=== PATIENT | female | born 1950 | race Caucasian/White ===

== ENCOUNTER 2017-03-31 11:29 | Observation (INO) | payer OTHER, MEDICARE ==
[~2017-03-31] VITALS: Ht 165.1 cm; Wt 83.6 kg
[~2017-03-31 11:29] MED LIST: LANTUS2P SQ; LISI-519 PO; LOVA20TA PO; METF-382 PO; MIRA33504 PO; RANI300C PO; SENN8.6T5 PO
[2017-03-31 11:31] VITALS: BP 123/59; PULSE 83; RESP 18; TEMP 97.6; O2SAT 98
[2017-03-31 12:14] LABS: AUTOMATED NEUTROPHIL # 8.4 TH/MM3 (1.8-7.7); BASOPHIL # 0.1 TH/MM3 (0-0.2); BASOPHIL % 0.5 % (0.0-2.0); EOSINOPHIL % 0.4 % (0.0-4.0); HEMATOCRIT 41.8 % (35.0-46.0); HEMOGLOBIN 14.1 GM/DL (11.6-15.3); LYMPHOCYTE # 2.1 TH/MM3 (1.0-4.8); MEAN CELL VOLUME 92.9 FL (80.0-100.0); MEAN CORPUSCULAR HEMOGLOBIN 31.4 PG (27.0-34.0); MEAN CORPUSCULAR HGB CONC 33.8 % (32.0-36.0); MEAN PLATELET VOLUME 7.5 FL (7.0-11.0); MONO % 3.8 % (0.0-8.0); MONOCYTE # 0.4 TH/MM3 (0-0.9); NEUT % 76.3 % (16.0-70.0); PLATELET COUNT 338 TH/MM3 (150-450); RED CELL DISTRIBUTION WIDTH 12.7 % (11.6-17.2)
[2017-03-31 12:31] LABS: PROTHROMBIN TIME - PATIENT 10.5 SEC (9.8-11.6)
[2017-03-31 12:32] LABS: ALBUMIN 4.2 GM/DL (3.4-5.0); ALT (GPT) 28 U/L (10-53); AST (GOT) 16 U/L (15-37); BICARBONATE 26.9 MEQ/L (21.0-32.0); BLOOD UREA NITROGEN 15 MG/DL (7-18); CALCIUM 9.2 MG/DL (8.5-10.1); CHLORIDE 102 MEQ/L (98-107); CREATININE 0.92 MG/DL (0.50-1.00); GLOMERULAR FILTRATION RATE 61 ML/MIN (>89); GLUCOSE,RANDOM 224 MG/DL (74-106); MAGNESIUM 1.4 MG/DL (1.5-2.5); SODIUM (NA) 139 MEQ/L (136-145)
[2017-03-31 12:36] LABS: ALKALINE PHOSPHATASE 77 U/L (45-117); TOTAL BILIRUBIN ADULT 0.3 MG/DL (0.2-1.0); TOTAL PROTEIN 7.8 GM/DL (6.4-8.2); TROPONIN I LESS THAN 0.02 NG/ML (0.02-0.05)
[2017-03-31] MEDS ORDERED: SODIUM CHLOR 0.9% 1000 ML INJ 1,000 ML IV ONE (13:00)
--- NOTE | 2017-03-31 13:15 | RADRPT ---
EXAM DATE/TIME: 03/31/2017 13:06 [facility] COMPARISON: CHEST SINGLE AP, February 16, 2016, 11:03. INDICATIONS : Syncope MEDICAL HISTORY : syncopal episodes, hx of ovarian cancer SURGICAL HISTORY : port for chemotherapy ENCOUNTER: Initial ACUITY: 1 month PAIN SCORE: 0/10 LOCATION: Bilateral chest FINDINGS: A single view of the chest demonstrates the lungs to be symmetrically aerated without evidence of mas s, infiltrate or effusion. The cardiomediastinal contours are unremarkable. Osseous structures are intact. The implantable port catheter remains in place. CONCLUSION: No acute disease. Doc Beltran MD on March 31, 2017 at 13:13 Board Certified Radiologist. This report was verified electronically.
--- NOTE | 2017-03-31 13:23 | RADRPT ---
EXAM DATE/TIME: 03/31/2017 13:16 [facility] COMPARISON: No previous studies available for comparison. INDICATIONS : Syncope RADIATION DOSE: 37.75 CTDIvol (mGy) MEDICAL HISTORY : Cardiovascular disease. Hypertension. Ovarian cancer SURGICAL HISTORY : Hysterectomy. ENCOUNTER: Initial ACUITY: 1 day PAIN SCALE: 0/10 LOCATION: cranial TECHNIQUE: Multiple contiguous axial images were obtained of the head. Using automated exposure control and adj ustment of the mA and/or kV according to patient size, radiation dose was kept as low as reasonably a chievable to obtain optimal diagnostic quality images. DICOM format image data is available electro nically for review and comparison. FINDINGS: CEREBRUM: The ventricles are normal for age. No evidence of midline shift, mass lesion, hemorrhage or acute in farction. No extra-axial fluid collections are seen. POSTERIOR FOSSA: The cerebellum and brainstem are intact. The 4th ventricle is midline. The cerebellopontine angle i s unremarkable. EXTRACRANIAL: The visualized portion of the orbits is intact. SKULL: The calvaria is intact. No evidence of skull fracture. CONCLUSION: Normal examination. Yoel Novoa MD on March 31, 2017 at 13:19 Board Certified Radiologist. This report was verified electronically.
--- NOTE | 2017-03-31 13:25 | PD ---
HPI Chief Complaint: Syncope/Near-Syncope Time Seen by Provider: 12:22 Travel History International Travel<30 days: No Contact w/Intl Traveler<30days: No Traveled to known affect area: No History of Present Illness HPI 67-year-old female that presents to the ED for evaluation of syncopal episode at work. Per family and patient she's never actually been worked up for this before. Per patient she usually takes care of it herself. Per who is present she's been having more frequent episodes of this since 2016. Per patient and family member in 2016 she had a big one and she had some workup but he was all negative. She has not seen anybody for it since. Per patient episodes becoming more frequent. Per patient and family member they thought he was maybe positional syncope but per family member he believes that this is not the case as patient hasn't even when she is sitting or laying. Per patient the episode today started will she was working. Per patient she works as a [employer]. She stated that she was taking care of her second fine today and she started feeling diaphoretic, sweaty, right all over and she sat down and the symptoms improved but she felt like she was about to pass out. She did not actually lost consciousness but she feels that she could still have an episode like this again. She did not felt comfortable driving, had her drive her home and because of her symptoms continued she decided to come here to get evaluated. She denies any history of heart disease. She does have a history of high cholesterol, diabetes and hypertension. No urinary or bowel movement issues. Denies any fevers chills or sweats. Denies any chest pain before or after the episodes. Follows with the residents for care. Patient denies any pain. No other symptoms reported at this time but states feeling that she feels weak. PFSH Past Medical History Asthma: No Blood Disorders: No Anxiety: No Depression: No Heart Rhythm Problems: No Cancer: Yes ( OVARIAN) Cardiovascular Problems: Yes (HTN, hyperlipidemia) High Cholesterol: Yes Chemotherapy: Yes Chest Pain: No Congestive Heart Failure: No COPD: No Diabetes: Yes Endocrine: Yes Genitourinary: No Hiatal Hernia: No Hypertension: Yes Immune Disorder: No Musculoskeletal: No Neurologic: No Psychiatric: No Reproductive: No Respiratory: No Radiation Therapy: No Sleep Apnea: No Thyroid Disease: No Past Surgical History AICD: No Hysterectomy: Yes (TOTAL) Joint Replacement: No Pacemaker: No Thoracic Surgery: Yes (SMALL TUMOR REMOVED FROM L BREAST) Other Surgery: Yes Social History Alcohol Use: No Tobacco Use: No Substance Use: No Allergies-Medications (Allergen,Severity, Reaction): Coded Allergies: vancomycin (Unverified Allergy, Severe, Hives, 03/31/17) Reported Meds & Prescriptions Reported Meds & Active Scripts Active Ranitidine (Ranitidine HCl) 300 Mg Cap 300 Mg PO DAILY Lovastatin 20 Mg Tab 20 Mg PO DAILY Lantus Inj (Insulin Glargine) 100 Unit/Ml Inj 24 Units SQ HS Reported Vitamin D3 (Cholecalciferol) 400 Unit Tab 400 Units PO DAILY One Daily For Women (Multiple Vitamins W/ Minerals) 0.4 Mg-18 Mg Tab 1 Tab PO DAILY Metformin ER (Metformin HCl) 1,000 Mg Neva 1,000 Mg PO BID With evening meal Lisinopril 5 Mg Tab 5 Mg PO DAILY Review of Systems Except as stated in HPI: all other systems reviewed are Neg Physical Exam Narrative GENERAL: SKIN: Warm and dry. HEAD: Atraumatic. Normocephalic. EYES: Pupils equal and round. No scleral icterus. No injection or drainage. ENT: No nasal bleeding or discharge. Mucous membranes pink and moist. Tongue is midline. No uvula deviation. NECK: Trachea midline. No JVD. CARDIOVASCULAR: Regular rate and rhythm. No murmurs, S3, S4. RESPIRATORY: No accessory muscle use. Clear to auscultation. Breath sounds equal bilaterally. GASTROINTESTINAL: Abdomen soft, non-tender, nondistended. Hepatic and splenic margins not palpable. MUSCULOSKELETAL: Extremities without clubbing, cyanosis, or edema. No obvious deformities. Full range of motion of the upper and lower extremities bilaterally. 2+ pulses bilaterally. NEUROLOGICAL: Awake and alert. No obvious cranial nerve deficits. Motor grossly within normal limits. Five out of 5 muscle strength in the arms and legs. Normal speech. PSYCHIATRIC: Appropriate mood and affect; insight and judgment normal. Data Data Last Documented VS Vital Signs Date Time Temp Pulse Resp B/P (MAP) Pulse Ox O2 Delivery O2 Flow Rate FiO2 03/31/17 13:48 77 16 122/66 (84) 98 Room Air 03/31/17 11:31 97.6 Orders Orders Electrocardiogram (03/31/17 11:47) Complete Blood Count With Diff (03/31/17 11:47) Comprehensive Metabolic Panel (03/31/17 11:47) Magnesium (Mg) (03/31/17 11:47) Ckmb (Isoenzyme) Profile (03/31/17 11:47) Troponin I (03/31/17 11:47) Act Partial Throm Time (Ptt) (03/31/17 11:47) Prothrombin Time / Inr (Pt) (03/31/17 11:47) Urinalysis - C+S If Indicated (03/31/17 11:47) Chest, Single Ap (03/31/17 12:37) Ct Brain W/O Iv Contrast(Rout) (03/31/17 12:37) Blood Glucose (03/31/17 12:37) Orthostatic Vital Signs (03/31/17 12:37) Sodium Chlor 0.9% 1000 Ml Inj (Ns 1000 M (03/31/17 13:00) Admit Order (Ed Use Only) (03/31/17 14:04) Labs Laboratory Tests Test 03/31/17 12:04 White Blood Count 11.0 TH/MM3 Red Blood Count 4.50 MIL/MM3 Hemoglobin 14.1 GM/DL Hematocrit 41.8 % Mean Corpuscular Volume 92.9 FL Mean Corpuscular Hemoglobin 31.4 PG Mean Corpuscular Hemoglobin Concent 33.8 % Red Cell Distribution Width 12.7 % Platelet Count 338 TH/MM3 Mean Platelet Volume 7.5 FL Neutrophils (%) (Auto) 76.3 % Lymphocytes (%) (Auto) 19.0 % Monocytes (%) (Auto) 3.8 % Eosinophils (%) (Auto) 0.4 % Basophils (%) (Auto) 0.5 % Neutrophils # (Auto) 8.4 TH/MM3 Lymphocytes # (Auto) 2.1 TH/MM3 Monocytes # (Auto) 0.4 TH/MM3 Eosinophils # (Auto) 0.0 TH/MM3 Basophils # (Auto) 0.1 TH/MM3 CBC Comment DIFF FINAL Differential Comment Prothrombin Time 10.5 SEC Prothromb Time International Ratio 1.0 RATIO Activated Partial Thromboplast Time 20.6 SEC Blood Urea Nitrogen 15 MG/DL Creatinine 0.92 MG/DL Random Glucose 224 MG/DL Total Protein 7.8 GM/DL Albumin 4.2 GM/DL Calcium Level 9.2 MG/DL Magnesium Level 1.4 MG/DL Alkaline Phosphatase 77 U/L Aspartate Amino Transf (AST/SGOT) 16 U/L Alanine Aminotransferase (ALT/SGPT) 28 U/L Total Bilirubin 0.3 MG/DL Sodium Level 139 MEQ/L Potassium Level 4.0 MEQ/L Chloride Level 102 MEQ/L Carbon Dioxide Level 26.9 MEQ/L Anion Gap 10 MEQ/L Estimat Glomerular Filtration Rate 61 ML/MIN Total Creatine Kinase 92 U/L Troponin I LESS THAN 0.02 NG/ML MDM Medical Decision Making Medical Screen Exam Complete: Yes Emergency Medical Condition: Yes Medical Record Reviewed: Yes Interpretation(s) EKG shows sinus rhythm with no sign of acute ischemia or arrhythmia read by me and attending. Troponin and CK-MB negative. CBC & BMP Diagram 03/31/17 12:04 Total Protein 7.8, Albumin 4.2, Calcium Level 9.2, Magnesium Level 1.4 L, Alkaline Phosphatase 77, Aspartate Amino Transf (AST/SGOT) 16, Alanine Aminotransferase (ALT/SGPT) 28, Total Bilirubin 0.3 Differential Diagnosis Syncope versus orthostatic hypotension versus vasovagal syncope versus cancer versus mass versus arrhythmia Narrative Course 67-year-old female that presents to the ED for evaluation of syncope. Patient was properly examined and was found to have signs and symptoms consistent with syncope. Labs and imaging were ordered. Clear to this time with definite concerning for cardiac disease as patient does have significant risk factors for them. Patient is a diabetic and states that her sugars have been in the 200s today. Labs and imaging showed no sign of acute disease. Case discussed with my attending who agrees with admission. Case discussed with residents who agreed with admission. Diagnosis Primary Impression: Syncope Qualified Codes: R55 - Syncope and collapse Admitting Information Admitting Physician Requests: Observation Huber Silveira Mar 31, 2017 13:25
[2017-03-31] MEDS ORDERED: VITD400 PO (13:38)
[2017-03-31] MEDS ORDERED: ONETAB13 PO (13:38)
[2017-03-31 13:47] VITALS: BP_SYST 115; BP_SYST 118; BP_SYST 122; BP_DIAS 59; BP_DIAS 66; BP_DIAS 67; RESP 16
[2017-03-31 13:48] VITALS: BP 122/66; PULSE 77; RESP 16; O2SAT 98
--- NOTE | 2017-03-31 14:39 | HHI.HP ---
[facility] Service Family Medicine Primary Care Physician Unknown Admission Diagnosis acute syncope Diagnoses: International Travel<30 Days: No Contact w/Intl Traveler<30days: No Known Affected Area: No History of Present Illness 67 y/o F, history of DM, GERD, HTN, and HLD , was at work today and started feeling a hot flash and nausea. 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 She ran to the bathroom and nothing happened. She continued to feel hot flashes and perspirations. She layed down on the bathroom floor. She got back up and tried to return to work but realized she was unable to. She didn't feel safe driving home and had her come pick her up. She threw up 1 time while she was waiting for her and threw up her breakfast. She took Zofran but this did not alleviate her nausea. Her brought her here to the hospital because of his concern that this keeps happening so often. This happened for the 1st time years ago and she thought she was over-heated from working in the yard and began before her cancer diagnosis. Since then she will experience this episode about one time per week. She gets hot flashes, blurry vision, N/V, dizziness, weakness, 'out-of-body' experience and presyncope. She has not yet had any syncopal episodes. The episode will last for about 1 hour. She denies any chest pain or shortness of breath during these episodes. Usually she can relax and lay down and recover from the episode but today she couldn't get out of it. Surgery for a large ovarian cancer tumor was in December of 2015. She has continued to inform her Search Director/Onc of these episodes. She has been through 6 chemotherapy treatments and finished in May of 2016. She last saw her Search Director/Onc in 2 or 3 months ago. The lab results were all normal per patient. Review of Systems Constitutional: DENIES: Weight loss, Chills Endocrine: DENIES: Polyuria, Polyphagia Ears, nose, mouth, throat: DENIES: Hearing loss, Vertigo Respiratory: COMPLAINS OF: Cough (recent URI last week), DENIES: Wheezing, Shortness of breath Cardiovascular: COMPLAINS OF: Orthopnea (+ sometimes), DENIES: Claudication Gastrointestinal: DENIES: Constipation, Diarrhea Genitourinary: DENIES: Abnormal vaginal bleeding, Urinary frequency Musculoskeletal: COMPLAINS OF: Stiffness (feet and back from working), DENIES: Joint Swelling Integumentary: DENIES: Rash, Breast masses Neurologic: DENIES: Headache, Seizures Psychiatric: DENIES: Mood changes, Depression Past Family Social History Past Medical History HTN HLD DM Ovarian cancer Past Surgical History GRISELDA-BSO in 2017 L breast tumor removed in Minor foot surgery 1980s Allergies: Coded Allergies: vancomycin (Unverified Allergy, Severe, Hives, 03/31/17) Family History Dad: heart disease, multiple [place]'s with angioplasty Mom: heart disease Brother: CAD, [place] Sister: CAD, [place] Social History works as [employer] (recently started working in 09/30 after chemo), lives at home with (who recently had pneumonia), exposed to Hep C with Non-smoker, Non-drinker, Never done drugs Physical Exam Vital Signs Vital Signs Date Time Temp Pulse Resp B/P (MAP) Pulse Ox O2 Delivery O2 Flow Rate FiO2 03/31/17 13:48 77 16 122/66 (84) 98 Room Air 03/31/17 13:47 77 16 115/59 (77) 81 16 118/67 (84) 87 16 122/66 (84) 03/31/17 11:31 97.6 83 18 123/59 (80) 98 Physical Exam GENERAL: This is a well-nourished, well-developed patient, in no apparent distress. SKIN: No rashes, ecchymoses or lesions. Cool and dry. HEAD: Atraumatic. Normocephalic. No temporal or scalp tenderness. EYES: Pupils equal round and reactive. Extraocular motions intact. No scleral icterus. No injection or drainage. ENT: Nose without bleeding, purulent drainage or septal hematoma. Throat without erythema, tonsillar hypertrophy or exudate. Uvula midline. Airway patent. NECK: Trachea midline. No JVD or lymphadenopathy. Supple, nontender, no meningeal signs. CARDIOVASCULAR: Regular rate and rhythm without murmurs, gallops, or rubs. RESPIRATORY: Clear to auscultation. Breath sounds equal bilaterally. No wheezes , rales, or rhonchi. GASTROINTESTINAL: Abdomen soft, non-tender, nondistended. No hepato-splenomegaly , or palpable masses. No guarding. MUSCULOSKELETAL: Extremities without clubbing, cyanosis, or edema. No joint tenderness, effusion, or edema noted. No calf tenderness. Negative Homans sign bilaterally. NEUROLOGICAL: Awake and alert. Cranial nerves II through XII intact. Motor and sensory grossly within normal limits. Five out of 5 muscle strength in all muscle groups. Normal speech. Laboratory Laboratory Tests Test 03/31/17 12:04 White Blood Count 11.0 Red Blood Count 4.50 Hemoglobin 14.1 Hematocrit 41.8 Mean Corpuscular Volume 92.9 Mean Corpuscular Hemoglobin 31.4 Mean Corpuscular Hemoglobin Concent 33.8 Red Cell Distribution Width 12.7 Platelet Count 338 Mean Platelet Volume 7.5 Neutrophils (%) (Auto) 76.3 Lymphocytes (%) (Auto) 19.0 Monocytes (%) (Auto) 3.8 Eosinophils (%) (Auto) 0.4 Basophils (%) (Auto) 0.5 Neutrophils # (Auto) 8.4 Lymphocytes # (Auto) 2.1 Monocytes # (Auto) 0.4 Eosinophils # (Auto) 0.0 Basophils # (Auto) 0.1 CBC Comment DIFF FINAL Differential Comment Prothrombin Time 10.5 Prothromb Time International Ratio 1.0 Activated Partial Thromboplast Time 20.6 Blood Urea Nitrogen 15 Creatinine 0.92 Random Glucose 224 Total Protein 7.8 Albumin 4.2 Calcium Level 9.2 Magnesium Level 1.4 Alkaline Phosphatase 77 Aspartate Amino Transf (AST/SGOT) 16 Alanine Aminotransferase (ALT/SGPT) 28 Total Bilirubin 0.3 Sodium Level 139 Potassium Level 4.0 Chloride Level 102 Carbon Dioxide Level 26.9 Anion Gap 10 Estimat Glomerular Filtration Rate 61 Total Creatine Kinase 92 Troponin I LESS THAN 0.02 Result Diagram: 03/31/17 1204 03/31/17 1204 Septic Shock Reassessment Septic shock perfusion: reassessment completed Caprini VTE Risk Assessment Caprini VTE Risk Assessment: No/Low Risk (score <= 1) Caprini Risk Assessment Model Point Value = 1 Point Value = 2 Point Value = 3 Point Value = 5 Age 41-60 Minor surgery BMI > 25 kg/m2 Swollen legs Varicose veins or History of unexplained or recurrent spontaneous Oral contraceptives or hormone replacement Sepsis (< 1 month) Serious lung disease, including pneumonia (< 1 month) Abnormal pulmonary function Acute myocardial infarction Congestive heart failure (< 1 month) History of inflammatory bowel disease Medical patient at bed rest Age 61-74 Arthroscopic surgery Major open surgery (> 45 min) Laparoscopic surgery (> 45 min) Malignancy Confined to bed (> 72 hours) Immobilizing plaster cast Central venous access Age >= 75 History of VTE Family history of VTE Factor V Leiden Prothrombin [id number] Lupus anticoagulant Anticardiolipin antibodies Elevated serum homocysteine Heparin-induced thrombocytopenia Other congenital or acquired thrombophilia Stroke (< 1 month) Elective arthroplasty Hip, pelvis, or leg fracture Acute spinal cord injury (< 1 month) Prophylaxis Regimen Total Risk Factor Score Risk Level Prophylaxis Regimen 0-1 Low Early ambulation 2 Moderate Order ONE of the following: *Sequential Compression Device (SCD) *Heparin 5000 units SQ BID 3-4 Higher Order ONE of the following medications: *Heparin 5000 units SQ TID *Enoxaparin/Lovenox 40 mg SQ daily (WT < 150 kg, CrCl > 30 mL/min) *Enoxaparin/Lovenox 30 mg SQ daily (WT < 150 kg, CrCl > 10-29 mL/min) *Enoxaparin/Lovenox 30 mg SQ BID (WT < 150 kg, CrCl > 30 mL/min) AND/OR *Sequential Compression Device (SCD) 5 or more Highest Order ONE of the following medications: *Heparin 5000 units SQ TID (Preferred with Epidurals) *Enoxaparin/Lovenox 40 mg SQ daily (WT < 150 kg, CrCl > 30 mL/min) *Enoxaparin/Lovenox 30 mg SQ daily (WT < 150 kg, CrCl > 10-29 mL/min) *Enoxaparin/Lovenox 30 mg SQ BID (WT < 150 kg, CrCl > 30 mL/min) AND *Sequential Compression Device (SCD) Assessment and Plan Assessment and Plan 67 y/o F, history of DM, GERD, HTN, and HLD , was at work today and started feeling a hot flash and nausea. Problem List: (1) Syncope ICD Codes: R55 - Syncope and collapse Status: Acute Plan: May be due to orthostatic hypotension versus stroke versus cardiac abnormality versus hypoglycemia versus cancer related - Orthostatic blood pressures negative - CT head negative -Follow up carotid ultrasound Follow-up echocardiogram Continuous telemetry Follow-up bedside glucose levels Follow-up CA 125 (2) Hypertension ICD Codes: I10 - Essential (primary) hypertension Status: Chronic Plan: Continue home medication When necessary Vasotec (3) Hyperlipidemia ICD Codes: E78.5 - Hyperlipidemia, unspecified Status: Chronic Plan: Continue lovastatin 20 mg daily Follow-up lipid profile We'll consider increase in statin dosing (4) Diabetes ICD Codes: E11.9 - Type 2 diabetes mellitus without complications Plan: Unknown control per patient Hold home meds Insulin sliding scale (5) Ovarian cancer ICD Codes: C56.9 - Malignant neoplasm of unspecified ovary Status: Resolved Plan: History of ovarian cancer, in remission per patient Last visit with ER MEDICAL TECHNICIAN/onc was 2-3 months ago Follow-up CA [address] abdomen/pelvis if necessary (6) fen/ppx Status: Chronic Plan: Fluid: Maintenance fluids Electrolytes: Follow-up BMP tomorrow Nutrition: By mouth diet GI prophylaxis: Not indicated DVT prophylaxis: Lovenox 40 daily Physician Certification 2 Midnight Certification Type: Admission for Inpatient Services Order for Inpatient Services The services are ordered in accordance with Medicare regulations or non- Medicare payer requirements, as applicable. In the case of services not specified as inpatient-only, they are appropriately provided as inpatient services in accordance with the 2-midnight benchmark. Estimated LOS (days): 2 days is the estimated time the patient will need to remain in the hospital, assuming treatment plan goals are met and no additional complications. Post-Hospital Plan: Home Problem Qualifiers (1) Syncope: Qualified Codes: R55 - Syncope and collapse Yin Gallego MD R2 Mar 31, 2017 14:39
[2017-03-31] MEDS ORDERED: SODIUM CHLOR 0.9% 1000 ML INJ 1,000 ML IV SCH (15:01)
[2017-03-31] MEDS ORDERED: GLUCAGON 1 MG/ML VIAL OTHER PRN (15:15)
[2017-03-31] MEDS ORDERED: ENALAPRILAT 1.25 MG/ML VIAL IV PUSH PRN (15:15)
[2017-03-31] MEDS ORDERED: DEXTROSE 50% IN WATER 50 ML VIAL(D50) IV PUSH PRN (15:15)
[2017-03-31] MEDS ORDERED: LORazepam 0.5 MG TAB PO PRN (15:15)
[2017-03-31 16:15] VITALS: BP 116/64; PULSE 67; RESP 16; O2SAT 98
--- NOTE | 2017-03-31 16:30 | RADRPT ---
EXAM DATE/TIME: 03/31/2017 15:46 [facility] COMPARISON: No previous studies available for comparison. INDICATIONS : Syncope. MEDICAL HISTORY : Hypercholesterolemia. Hypertension. . Diabetes. Ovarian cancer. Chemotherapy. Measles. Blood transfusion. SURGICAL HISTORY : Hysterectomy. Bilateral feet surgery. Left breast tumor removed. ENCOUNTER: Initial ACUITY: 1 day PAIN SCORE: 0/10 LOCATION: Bilateral neck PEAK SYSTOLIC VELOCITIES (cm/sec): ICA/CCA RATIO: Right: 1.0 Left: 1.0 ICA: Right: 124 Left: 113 CCA: Right: 128 Left: 115 ECA: Right: 126 Left: 98 VERTEBRAL: Right: 58 antegrade Left: 118 antegrade Elevated flow velocities and ICA/CCA ratios have been found to correlate with increased degrees of vessel stenosis, calculated as percentage of diameter relative to a normal segment of distal ICA/CCA FINDINGS: RIGHT CAROTID: No significant stenosis is visualized. The waveforms are within normal limits. LEFT CAROTID: No significant stenosis is visualized. The waveforms are within normal limits. VERTEBRAL ARTERIES: Antegrade flow is seen in both vertebral arteries. MISCELLANEOUS: None. CONCLUSION: 1. No hemodynamically significant carotid artery stenosis identified. Arturo Cano MD on March 31, 2017 at 16:27 Board Certified Radiologist. This report was verified electronically.
[2017-03-31] MEDS: INSULIN ASPART SUPPLEMENTAL SCALE SQ SCH ×2 (17:00→21:00)
[2017-03-31] MEDS ORDERED: ENOXAPARIN SODIUM 40 MG/0.4 ML SYRINGE SQ SCH (17:00)
[2017-03-31 20:44] VITALS: O2SAT 95
[2017-03-31 22:00] VITALS: BP 121/59; PULSE 71; RESP 16; TEMP 98.1; O2SAT 97
[2017-03-31 22:26] LABS: BACTERIA, URINE RARE /hpf; BILIRUBIN, URINE NEG (NEG); BLOOD, URINE NEG (NEG); GLUCOSE,URINE 150 mg/dL (NEG); HYALINE CAST, URINE 17 /lpf (RARE); KETONE, URINE TRACE mg/dL (NEG); MUCUS URINE FEW /lpf (OCC); NITRITE,URINE NEG (NEG); PH, URINE 5.5 (5.0-8.5); SQUAMOUS EPITHELIAL CELL URINE 2 /hpf (0-5); URINE COLOR YELLOW (YELLW/STRAW); URINE LEUKOCYTE ESTERASE LARGE (NEG)
[2017-03-31] MEDS: FAMOTIDINE 20 MG TAB PO SCH (23:53)
[2017-04-01 03:38] LABS: AUTOMATED NEUTROPHIL # 3.8 TH/MM3 (1.8-7.7); BASOPHIL % 0.6 % (0.0-2.0); EOSINOPHIL # 0.2 TH/MM3 (0-0.4); EOSINOPHIL % 1.9 % (0.0-4.0); HEMATOCRIT 34.7 % (35.0-46.0); HEMOGLOBIN 11.9 GM/DL (11.6-15.3); LYMPH % 45.2 % (9.0-44.0); LYMPHOCYTE # 3.7 TH/MM3 (1.0-4.8); MEAN CELL VOLUME 92.9 FL (80.0-100.0); MEAN CORPUSCULAR HEMOGLOBIN 31.8 PG (27.0-34.0); MEAN CORPUSCULAR HGB CONC 34.2 % (32.0-36.0); MEAN PLATELET VOLUME 7.6 FL (7.0-11.0); MONO % 5.4 % (0.0-8.0); MONOCYTE # 0.4 TH/MM3 (0-0.9); NEUT % 46.9 % (16.0-70.0); PLATELET COUNT 296 TH/MM3 (150-450); RED BLOOD COUNT 3.73 MIL/MM3 (4.00-5.30); RED CELL DISTRIBUTION WIDTH 12.7 % (11.6-17.2); WHITE BLOOD COUNT 8.1 TH/MM3 (4.0-11.0)
[2017-04-01 04:48] LABS: ALBUMIN 3.2 GM/DL (3.4-5.0); ALKALINE PHOSPHATASE 59 U/L (45-117); ALT (GPT) 21 U/L (10-53); AST (GOT) 14 U/L (15-37); BICARBONATE 27.4 MEQ/L (21.0-32.0); BLOOD UREA NITROGEN 12 MG/DL (7-18); CALCIUM 8.1 MG/DL (8.5-10.1); CHLORIDE 108 MEQ/L (98-107); CHOLESTEROL 187 MG/DL (120-200); CHOLESTEROL/ HDL RATIO 3.13 RATIO; CREATININE 0.54 MG/DL (0.50-1.00); GLOMERULAR FILTRATION RATE 113 ML/MIN (>89); GLUCOSE,RANDOM 142 MG/DL (74-106); HDL CHOLESTEROL 59.7 MG/DL (40.0-60.0); LDL CHOLESTEROL 95 MG/DL (0-99); MAGNESIUM 1.5 MG/DL (1.5-2.5); SODIUM (NA) 141 MEQ/L (136-145); TOTAL BILIRUBIN ADULT 0.3 MG/DL (0.2-1.0); TOTAL PROTEIN 6.1 GM/DL (6.4-8.2); TRIGLYCERIDES 163 MG/DL (42-150)
[2017-04-01 08:00] VITALS: BP 138/68; PULSE 74; RESP 17; TEMP 98.4; O2SAT 95
[2017-04-01] MEDS: INSULIN ASPART SUPPLEMENTAL SCALE SQ SCH (08:00)
[2017-04-01] MEDS: FAMOTIDINE 20 MG TAB PO SCH (08:15)
[2017-04-01] MEDS ORDERED: PRAVASTATIN SOD 20 MG TAB PO SCH (09:00)
[2017-04-01] MEDS ORDERED: LISINOPRIL 5 MG TAB PO SCH (09:00)
[2017-04-01] MEDS ORDERED: CHOLECALCIFEROL (VIT D3) 400 UNIT TAB PO SCH (09:00)
[2017-04-01] MEDS ORDERED: MULTIVITAMINS/MINERALS THERAPEUTIC TAB PO SCH (09:00)
--- NOTE | 2017-04-01 09:20 | HHI.HP ---
[facility] Service Family Medicine Primary Care Physician Unknown Admission Diagnosis acute syncope Diagnoses: (1) Syncope Diagnosis: Principal (2) Hypertension Diagnosis: Principal (3) Hyperlipidemia Diagnosis: Principal (4) Diabetes Diagnosis: Principal (5) Ovarian cancer Diagnosis: Principal (6) fen/ppx Diagnosis: Principal International Travel<30 Days: No Contact w/Intl Traveler<30days: No Known Affected Area: No History of Present Illness Ms Sampson is a 67 y/o F, history of DM, GERD, HTN, and HLD , was at work yesterday and started feeling a hot flash and nausea. 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 She ran to the bathroom and nothing happened. She continued to feel hot flashes and perspirations. She was lying down on the bathroom floor. She got back up and tried to return to work but realized she was unable to. She didn't feel safe driving home and had her come pick her up. She vomited 1 time while she was waiting for her and threw up her breakfast. She took Zofran but this did not alleviate her nausea. Her brought her here to the hospital because of his concern that this keeps happening so often. This happened for the 1st time years ago in 2006 or 2007 and she thought she was over-heated from working in the yard and began before her cancer diagnosis. Since then she will experience this episode about one time per week. She gets hot flashes, blurry vision, N/V, dizziness, weakness, 'out-of-body' experience and presyncope. She has not yet had any syncopal episodes. The episode will last for about 1 hour. She denies any chest pain or shortness of breath during these episodes. Usually she can relax and lie down and recover from the episode but today she couldn't get out of it. Surgery for a large ovarian cancer tumor was in December of 2015. She has continued to inform her Planer Tailer/Onc of these episodes. She has been through 6 chemotherapy treatments and finished in May of 2016. She last saw her Planer Tailer/Onc in 2 or 3 months ago. The lab results were all normal per patient. She started getting these episodes in 2006 or 2007. She had been diagnosed with DM in 2004. She has been on essentially the same meds but with increases in the doses of her metformin over the years. She reports initially these episodes were quite infrequent but now are happening more and more.She noticed these always occur between 9 and 10 am always at work when she is standing or at home when she is gardening and bending up and down. She described feeling hot, nauseated, sweat "dripping" and then feels like vomiting or having diarrhea. She said, "I can't stand up. Lying down on the floor makes me feel better." She doesn't actually have syncope but getting up makes her worse. After she vomiting pr has diarrhea or both she feels better. She denies any GI problems or pain. She had colonoscopy a few years ago which was reported as normal by her. This am she feel back to normal and wants to go home today. She and her agreed to try some changes in her meds and follow up closely with her PCP. Review of Systems Other Constitutional: DENIES: Weight loss, Chills Endocrine: DENIES: Polyuria, Polyphagia Ears, nose, mouth, throat: DENIES: Hearing loss, Vertigo Respiratory: COMPLAINS OF: Cough (recent URI last week), DENIES: Wheezing, Shortness of breath Cardiovascular: COMPLAINS OF: Orthopnea (+ sometimes), DENIES: Claudication Gastrointestinal: DENIES: Constipation, Diarrhea Genitourinary: DENIES: Abnormal vaginal bleeding, Urinary frequency Musculoskeletal: COMPLAINS OF: Stiffness (feet and back from working), DENIES: Joint Swelling Integumentary: DENIES: Rash, Breast masses Neurologic: DENIES: Headache, Seizures Psychiatric: DENIES: Mood changes, Depression Past Family Social History Past Medical History HTN HLD DM Ovarian cancer Past Surgical History GRISELDA-BSO in 2016 L breast tumor removed in Minor foot surgery Allergies: Coded Allergies: vancomycin (Unverified Allergy, Severe, Hives, 03/31/17) Family History Dad: heart disease, multiple DC's with angioplasty Mom: heart disease Brother: CAD, DC Sister: CAD, DC Social History works as [employer] (recently started working in 09/30 after chemo), lives at home with (who recently had pneumonia), exposed to Hep C with Non-smoker, Non-drinker, Never done drugs Physical Exam Vital Signs Vital Signs Date Time Temp Pulse Resp B/P (MAP) Pulse Ox O2 Delivery O2 Flow Rate FiO2 04/01/17 08:00 98.4 74 17 138/68 (91) 95 03/31/17 22:00 98.1 71 16 121/59 (79) 97 03/31/17 20:44 95 03/31/17 16:50 03/31/17 16:15 67 16 116/64 (81) 98 Room Air 03/31/17 13:48 77 16 122/66 (84) 98 Room Air 03/31/17 13:47 77 16 115/59 (77) 81 16 118/67 (84) 87 16 122/66 (84) 03/31/17 11:31 97.6 83 18 123/59 (80) 98 Physical Exam GENERAL: This is a pleasant, well spoken well-nourished, well-developed patient , in no apparent distress. She feels great today and gets up and has no sxs at this time. SKIN: No rashes, ecchymoses or lesions. Cool and dry. HEAD: Atraumatic. Normocephalic. EYES: Pupils equal round and reactive. Extraocular motions intact. No scleral icterus. No injection or drainage. ENT: Nose without bleeding, purulent drainage or septal hematoma. . Airway patent. NECK: Trachea midline. No JVD or lymphadenopathy. Supple, nontender, no meningeal signs. CARDIOVASCULAR: Regular rate and rhythm without murmurs, gallops, or rubs. RESPIRATORY: Clear to auscultation. Breath sounds equal bilaterally. No wheezes , rales, or rhonchi. GASTROINTESTINAL: Abdomen soft, non-tender, nondistended. No hepato-splenomegaly , or palpable masses. No guarding. MUSCULOSKELETAL: Extremities without clubbing, cyanosis, or edema. No joint tenderness, effusion, or edema noted. No calf tenderness. Negative Homans sign bilaterally. NEUROLOGICAL: Awake and alert. Cranial nerves II through XII intact. Motor and sensory grossly within normal limits. Five out of 5 muscle strength in all muscle groups. Normal speech. Laboratory Laboratory Tests Test 03/31/17 12:04 03/31/17 21:57 03/31/17 22:00 04/01/17 03:08 White Blood Count 11.0 8.1 Red Blood Count 4.50 3.73 Hemoglobin 14.1 11.9 Hematocrit 41.8 34.7 Mean Corpuscular Volume 92.9 92.9 Mean Corpuscular Hemoglobin 31.4 31.8 Mean Corpuscular Hemoglobin Concent 33.8 34.2 Red Cell Distribution Width 12.7 12.7 Platelet Count 338 296 Mean Platelet Volume 7.5 7.6 Neutrophils (%) (Auto) 76.3 46.9 Lymphocytes (%) (Auto) 19.0 45.2 Monocytes (%) (Auto) 3.8 5.4 Eosinophils (%) (Auto) 0.4 1.9 Basophils (%) (Auto) 0.5 0.6 Neutrophils # (Auto) 8.4 3.8 Lymphocytes # (Auto) 2.1 3.7 Monocytes # (Auto) 0.4 0.4 Eosinophils # (Auto) 0.0 0.2 Basophils # (Auto) 0.1 0.0 CBC Comment DIFF FINAL DIFF FINAL Differential Comment Prothrombin Time 10.5 Prothromb Time International Ratio 1.0 Activated Partial Thromboplast Time 20.6 Blood Urea Nitrogen 15 12 Creatinine 0.92 0.54 Random Glucose 224 142 Total Protein 7.8 6.1 Albumin 4.2 3.2 Calcium Level 9.2 8.1 Magnesium Level 1.4 1.5 Alkaline Phosphatase 77 59 Aspartate Amino Transf (AST/SGOT) 16 14 Alanine Aminotransferase (ALT/SGPT) 28 21 Total Bilirubin 0.3 0.3 Sodium Level 139 141 Potassium Level 4.0 3.6 Chloride Level 102 108 Carbon Dioxide Level 26.9 27.4 Anion Gap 10 6 Estimat Glomerular Filtration Rate 61 113 Total Creatine Kinase 92 Troponin I LESS THAN 0.02 LESS THAN 0.02 LESS THAN 0.02 Urine Color YELLOW Urine Turbidity CLEAR Urine pH 5.5 Urine Specific [place] 1.016 Urine Protein NEG Urine Glucose (UA) 150 Urine Ketones TRACE Urine Occult Blood NEG Urine Nitrite NEG Urine Bilirubin NEG Urine Urobilinogen LESS THAN 2.0 Urine Leukocyte Esterase LARGE Urine RBC 14 Urine WBC 66 Urine Squamous Epithelial Cells 2 Urine Bacteria RARE Urine Hyaline Casts 17 Urine Mucus FEW Microscopic Urinalysis Comment CULTURE INDICATED Ammonia 29 Triglycerides Level 163 Cholesterol Level 187 LDL Cholesterol 95 HDL Cholesterol 59.7 Cholesterol/HDL Ratio 3.13 CA 125 Antigen 4.1 Vitamin B12 Level 781 Thyroid Stimulating Hormone 3rd Gen 3.160 Random Cortisol 14.7 Date/Time Source Procedure Growth Status 03/31/17 22:00 Urine Random Urine Urine Culture Pending Received Result Diagram: 04/01/178 04/01/17 0308 Caprini VTE Risk Assessment Caprini VTE Risk Assessment: No/Low Risk (score <= 1) Caprini Risk Assessment Model Point Value = 1 Point Value = 2 Point Value = 3 Point Value = 5 Age 41-60 Minor surgery BMI > 25 kg/m2 Swollen legs Varicose veins or History of unexplained or recurrent spontaneous Oral contraceptives or hormone replacement Sepsis (< 1 month) Serious lung disease, including pneumonia (< 1 month) Abnormal pulmonary function Acute myocardial infarction Congestive heart failure (< 1 month) History of inflammatory bowel disease Medical patient at bed rest Age 61-74 Arthroscopic surgery Major open surgery (> 45 min) Laparoscopic surgery (> 45 min) Malignancy Confined to bed (> 72 hours) Immobilizing plaster cast Central venous access Age >= 75 History of VTE Family history of VTE Factor V Leiden Prothrombin [id number] Lupus anticoagulant Anticardiolipin antibodies Elevated serum homocysteine Heparin-induced thrombocytopenia Other congenital or acquired thrombophilia Stroke (< 1 month) Elective arthroplasty Hip, pelvis, or leg fracture Acute spinal cord injury (< 1 month) Prophylaxis Regimen Total Risk Factor Score Risk Level Prophylaxis Regimen 0-1 Low Early ambulation 2 Moderate Order ONE of the following: *Sequential Compression Device (SCD) *Heparin 5000 units SQ BID 3-4 Higher Order ONE of the following medications: *Heparin 5000 units SQ TID *Enoxaparin/Lovenox 40 mg SQ daily (WT < 150 kg, CrCl > 30 mL/min) *Enoxaparin/Lovenox 30 mg SQ daily (WT < 150 kg, CrCl > 10-29 mL/min) *Enoxaparin/Lovenox 30 mg SQ BID (WT < 150 kg, CrCl > 30 mL/min) AND/OR *Sequential Compression Device (SCD) 5 or more Highest Order ONE of the following medications: *Heparin 5000 units SQ TID (Preferred with Epidurals) *Enoxaparin/Lovenox 40 mg SQ daily (WT < 150 kg, CrCl > 30 mL/min) *Enoxaparin/Lovenox 30 mg SQ daily (WT < 150 kg, CrCl > 10-29 mL/min) *Enoxaparin/Lovenox 30 mg SQ BID (WT < 150 kg, CrCl > 30 mL/min) AND *Sequential Compression Device (SCD) Assessment and Plan Assessment and Plan 67 y/o F, history of DM, GERD, HTN, and HLD , was at work and started feeling symptoms suggestive of vasovagal presyncope Problem List: (1) Syncope ICD Codes: R55 - Syncope and collapse Status: Acute Plan: May be due to orthostatic hypotension versus stroke versus cardiac abnormality versus hypoglycemia versus cancer related - Orthostatic blood pressures negative now. not able to be done at exact moment she was having the problem - CT head negative -Follow up carotid ultrasound Follow-up echocardiogram Continuous telemetry Follow-up bedside glucose levels (2) Hypertension ICD Codes: I10 - Essential (primary) hypertension Status: Chronic Plan: Continue home medication, will give star inhibitor at night When necessary Vasotec (3) Hyperlipidemia ICD Codes: E78.5 - Hyperlipidemia, unspecified Status: Chronic Plan: Continue lovastatin 20 mg daily Follow-up lipid profile We'll consider increase in statin dosing (4) Diabetes ICD Codes: E11.9 - Type 2 diabetes mellitus without complications Plan: HbA1C less than 8 per patient Hold home meds Insulin sliding scale will decrease metformin as GI sxs are a big component of her problems and she always vomits or has diarrhea as part of her sxs (5) Ovarian cancer ICD Codes: C56.9 - Malignant neoplasm of unspecified ovary Status: Resolved Plan: History of ovarian cancer, in remission per patient Last visit with [employer] BASIS ARCHITECT/onc was 2-3 months ago We'll consider CT abdomen/pelvis if necessary she has been having these episodes since 2006 well before her ovarian cancer so doubt that is effecting this at this moment (6) fen/ppx Status: Chronic Plan: Fluid: Maintenance fluids Electrolytes: Follow-up BMP tomorrow Nutrition: By mouth diet GI prophylaxis: Not indicated DVT prophylaxis: Lovenox 40 daily Problem Qualifiers (1) Syncope: Qualified Codes: R55 - Syncope and collapse (2) Hypertension: Qualified Codes: I10 - Essential (primary) hypertension (3) Hyperlipidemia: Qualified Codes: E78.00 - Pure hypercholesterolemia, unspecified (4) Diabetes: Qualified Codes: E11.8 - Type 2 diabetes mellitus with unspecified complications; Z79.4 - termite treater (current) use of insulin (5) Ovarian cancer: Qualified Codes: C56.9 - Malignant neoplasm of unspecified ovary Jing Sepulveda MD Apr 01, 2017 09:20
[2017-04-01] MEDS ORDERED: PNEUMOCOCCAL POLYVALENT INJ 25 MCG/0.5 ML SYR IM ONE (10:00)
[2017-04-01] MEDS ORDERED: INFLUENZA VIRUS VACCINE (QUADRIVALENT) 0.5 ML SYR IM ONE (10:00)
[2017-04-01] MEDS ORDERED: LISI-519 PO (11:42)
[2017-04-01] MEDS ORDERED: METF500T PO (11:42)
--- NOTE | 2017-04-01 11:43 | HHI.DCPOC ---
Discharge Care Plan Diagnosis: (1) Vasovagal syncope Goals to Promote Your Health * To prevent worsening of your condition and complications * To maintain your health at the optimal level Directions to Meet Your Goals Take your medications as prescribed Follow your dietary instruction Follow activity as directed Keep your appointments as scheduled Take your immunizations and boosters as scheduled If your symptoms worsen call your PCP, if no PCP go to Urgent Care Center or Emergency Room Smoking is Dangerous to Your Health. Avoid second hand smoke Call the 24-hour hour crisis hotline for domestic abuse at Jodi Kahn MD, R3 Apr 01, 2017 11:43
[2017-04-01 11:47] LABS: HEPATITIS A AB IGM NEGATIVE (NEGATIVE); HEPATITIS B CORE AB IGM NEGATIVE (NEGATIVE); HEPATITIS B SURFACE ANTIGEN NEGATIVE (NEGATIVE); HEPATITIS C AB IgG NEGATIVE (NEGATIVE)
[2017-04-01 12:00] VITALS: BP 127/70; PULSE 73; RESP 17; TEMP 97.8; O2SAT 96
--- NOTE | 2017-04-01 15:51 | EKG ---
Date Performed: 03/31/2017 Time Performed: 12:00:07 PTAGE: 67 years EKG: Sinus rhythm Since previous tracing, no significant change noted NORMAL ECG PREVIOUS TRACING : 02/16/2016 11.25 DOCTOR: Kath Salgado Interpretating Date/Time 04/01/2017 15:50:05
--- NOTE | 2017-04-01 20:02 | ECHRPT ---
Indication: Essential (primary) hypertension CONCLUSIONS The left ventricular systolic function is normal with an estimated ejection fraction in the range of 60-65%. Mild concentric left ventricular hypertrophy. Normal left ventricular size. There is trace tricuspid valve regurgitation. The estimated pulmonary arterial pressure is 22 mmHg. Trace pericardial effusion. BP: 121 / 59 HR: 71 Rhythm: Sinus MEASUREMENTS (Male / Female) Normal Values Technical Quality:Good 2D ECHO LV Diastolic Diameter PLAX 4.3 cm 4.2 - 5.9 / 3.9 - 5.3 cm LV Systolic Diameter PLAX 3.1 cm IVS Diastolic Thickness 1.1 cm 0.6 - 1.0 / 0.6 - 0.9 cm LVPW Diastolic Thickness 1.1 cm 0.6 - 1.0 / 0.6 - 0.9 cm LV Relative Wall Thickness 0.5 LVOT Diameter 1.7 cm M-MODE Aortic Root Diameter MM 2.3 cm LA Systolic Diameter MM 3.8 cm LA Ao Ratio MM 1.7 AV Cusp Separation MM 2.0 cm DOPPLER AV Peak Velocity 143.0 cm/s AV Peak Gradient 8.2 mmHg LVOT Peak Velocity 104.0 cm/s LVOT Peak Gradient 4.3 mmHg AV Area Cont Eq pk 1.7 cm Mitral E Point Velocity 114.0 cm/s Mitral A Point Velocity 66.1 cm/s Mitral E to A Ratio 1.7 LV E' Lateral Velocity 9.8 cm/s Mitral E to LV E' Lateral Ratio 11.7 LV E' Septal Velocity 9.1 cm/s Mitral E to LV E' Septal Ratio 12.6 TR Peak Velocity 174.0 cm/s TR Peak Gradient 12.1 mmHg Right Atrial Pressure 10.0 mmHg Pulmonary Artery Systolic Pressu 22.1 mmHg Right Ventricular Systolic Press 22.1 mmHg PV Peak Velocity 122.0 cm/s PV Peak Gradient 6.0 mmHg FINDINGS LEFT VENTRICLE The left ventricular systolic function is normal with an estimated ejection fraction in the range of 60-65%. Mild concentric left ventricular hypertrophy. Normal left ventricular size. RIGHT VENTRICLE Normal right ventricular size and systolic function. LEFT ATRIUM The left atrial size is normal. RIGHT ATRIUM The right atrial size is normal. ATRIAL SEPTUM Normal atrial septal thickness without atrial level shunting by limited color doppler interrogation. AORTA The aortic root and proximal ascending aorta are normal in size on limited imaging. MITRAL VALVE Structurally normal mitral valve. No mitral valve stenosis or regurgitation. AORTIC VALVE Trileaflet aortic valve. No aortic valve stenosis or regurgitation. TRICUSPID VALVE There is trace tricuspid valve regurgitation. The estimated pulmonary arterial pressure is 22.1 mmHg. PULMONARY VALVE No pulmonary valve regurgitation or stenosis. VESSELS The inferior vena cava is normal in size. PERICARDIUM Trace pericardial effusion. Kaykay Figueroa MD, FACC (Electronically Signed) Final Date:01 April 2017 20:00
[2017-04-02] MEDS ORDERED: PRAVASTATIN SOD 20 MG TAB PO SCH (21:00)
== END 2017-04-01 15:07 | disposition home or self-care (01) ==
LOC: NEPE 11:29 → NEDA 14:05 → NEPGCP 17:41
PROVIDERS: ADMIT Family Medicine; ATTEND Family Medicine
DX: R55 Syncope and collapse (principal); H53.8 Other visual disturbances; R11.2 Nausea with vomiting, unspecified; R42 Dizziness and giddiness; R53.1 Weakness; R19.7 Diarrhea, unspecified; R61 Generalized hyperhidrosis; I10 Essential (primary) hypertension; E78.00 Pure hypercholesterolemia, unspecified; E11.9 Type 2 diabetes mellitus without complications; K21.9 Gastro-esophageal reflux disease without esophagitis; N95.1 Menopausal and female climacteric states; Z79.899 Other long term (current) drug therapy; Z79.84 Long term (current) use of oral hypoglycemic drugs; Z85.43 Personal history of malignant neoplasm of ovary
CPT/HCPCS: 70450; 71045; 80053; 80061; 80074; 81001; 82140; 82533; 82550; 82607; 82948; 83735; 84425; 84443; 84484; 85025; 85610; 85730; 86304; 86592; 87086; 93005; 93306; 93880; 96360; 96361; 96372; 99285; G0378; J1650; J1815; J7030